=== PATIENT | male | born 1980 | race Caucasian/White ===

== ENCOUNTER 2019-08-23 01:05 | Emergency (ER) | payer SELFPAY ==
[~2019-08-23] VITALS: Ht 185.4 cm; Wt 73.0 kg
[2019-08-23 01:38] VITALS: BP 126/71
[2019-08-23] MEDS ORDERED: KETOROLAC 60MG/2ML VIAL IM ONE (02:30)
== END 2019-08-23 04:34 | disposition home or self-care (01) ==
LOC: ER 01:05
DX: S02.2XXA Fracture of nasal bones, initial encounter for closed fracture (principal); Y04.2XXA Assault by strike against or bumped into by another person, initial encounter; Y93.89 Activity, other specified; Y92.89 Other specified places as the place of occurrence of the external cause; R03.0 Elevated blood-pressure reading, without diagnosis of hypertension
CPT/HCPCS: 70160; 96372; 99283; J1885